=== PATIENT | male | born 2000 | race Caucasian/White ===

== ENCOUNTER 2024-03-28 14:56 | Emergency (ER) | payer OTHER, SELFPAY ==
[2024-03-28 15:14] VITALS: BP 128/75
[2024-03-28 17:42] VITALS: BMI 27.4
[2024-03-28] MEDS: MOTRIN 600 MG PO (17:47)
--- NOTE | 2024-03-28 17:52 | ED.GENMED ---
History of Present Illness
<Dereje Hernandez DO, Resident - Last Filed: 03/28/24 19:20>
General
Chief Complaint: Musculo-Skeletal Complaint
Source: patient and family
Time Seen by Provider: 03/28/24 17:26
History of Present Illness
History of Present Illness:
24-year-old male with no significant past medical history presents for 1 day of pain and bruising to the left shoulder after he fell while snowboarding yesterday. Patient reports he did hit his head, no loss of consciousness, no photophobia, no
difficulty concentrating, no changes in vision. Patient also reports that he landed on his left shoulder at a high rate of speed. Now he is complaining of left shoulder pain worse with motion. He is only tried aspirin, he reports it does not help.
Past History
<Dereje Hernandez DO, Resident - Last Filed: 03/28/24 19:20>
Past History
ED Past Medical History: None
ED Past Surgical History: None
Patient has exhibited threatening behavior?: No
Social History
Personal: Single
Living: with family
Review of Systems
<Dereje Hernandez DO, Resident - Last Filed: 03/28/24 19:20>
Review of Systems
Constitutional: Reports no symptoms
Respiratory: Reports no symptoms
Cardiac: Reports no symptoms
ABD/GI: Reports no symptoms
: Reports no symptoms
Musculoskeletal: Reports joint pain (Left shoulder pain) and muscle stiffness
Neurological: Reports no symptoms; Denies dizzy or headache
Phy Exam
<Dereje Hernandez DO, Resident - Last Filed: 03/28/24 19:20>
General Physical Exam
General Presentation: well appearing and no apparent distress
General Skin: warm and dry
General Mental: alert
Cardiovascular Exam
Cardiovascular Exam: regular rate/rhythm, no edema and no murmur
Pulmonary Exam
Pulmonary Exam: lungs clear, no respiratory distress, no crackles and no wheezing
Gastrointestinal Exam
Gastrointestinal Exam: non tender, soft and non distended
Neurological Exam
Neurological Exam: alert, oriented x3, no motor deficits, no sensory deficits and speech normal
Musculoskeletal Exam
Musculoskeletal Exam: back tenderness and other (Restricted active range of motion on exam. Full passive range of motion on exam. Patient reports tenderness to palpation of the left AC joint only)
Skin Exam
Skin Exam: other (Bruising present on left AC joint)
Course
<Dereje Hernandez DO, Resident - Last Filed: 03/28/24 19:20>
Orders/Labs/Results
Orders:
Orders
03/28/24 14:57
CR Shoulder - Left Min 2 View* Urgent
Comment:
Reason For Exam: pain
03/28/24 15:18
Shoulder, Left, Trauma CR [CR Shoulder, Trauma - Left] Urgent
Comment:
Reason For Exam: pain injury
03/28/24 17:43
Ibuprofen [Motrin] 600 mg PO NOW STA
03/28/24 18:24
Sling Left-Treatment ONCE
Comment: Left arm
Cyclobenzaprine HCl [Flexeril] 10 mg PO NOW STA
Vital Signs
Initial and Last Documented VS:
Initial Vital Signs
Pulse Resp BP Pulse Ox
68 15 128/75 99
03/28/24 15:14 03/28/24 15:14 03/28/24 15:14 03/28/24 15:14
Last Documented Vital Signs
Temp Pulse Resp BP Pulse Ox
97.5 F 60 18 123/72 99
03/28/24 18:57 03/28/24 18:57 03/28/24 18:57 03/28/24 18:57 03/28/24 18:57
<Leslee Fitzpatrick MD - Last Filed: 03/28/24 19:06>
Orders/Labs/Results
Orders:
Orders
03/28/24 14:57
CR Shoulder - Left Min 2 View* Urgent
Comment:
Reason For Exam: pain
03/28/24 15:18
Shoulder, Left, Trauma CR [CR Shoulder, Trauma - Left] Urgent
Comment:
Reason For Exam: pain injury
03/28/24 17:43
Ibuprofen [Motrin] 600 mg PO NOW STA
03/28/24 18:24
Sling Left-Treatment ONCE
Comment: Left arm
Cyclobenzaprine HCl [Flexeril] 10 mg PO NOW STA
Vital Signs
Initial and Last Documented VS:
Initial Vital Signs
Pulse Resp BP Pulse Ox
68 15 128/75 99
03/28/24 15:14 03/28/24 15:14 03/28/24 15:14 03/28/24 15:14
Last Documented Vital Signs
Temp Pulse Resp BP Pulse Ox
97.5 F 60 18 123/72 99
03/28/24 18:57 03/28/24 18:57 03/28/24 18:57 03/28/24 18:57 03/28/24 18:57
<Dereje Hernandez DO, Resident - Last Filed: 03/28/24 19:20>
MDM/Problems Addressed
Differential Diagnosis Includes:
AC joint separation, musculoskeletal injury secondary to trauma, musculoskeletal strain, musculoskeletal sprain
MDM/Problems Addressed:
24-year-old male presents 1 day after falling off a snowboard and hitting his left shoulder and head
Patient reports no loss of consciousness, no symptoms of concussion. No dizziness, no headache no difficulty concentrating, no photophobia
On exam patient has limited active range of motion of the left shoulder in all planes of motion. Patient has full range of motion to passive movement, does report pain with passive movement. Reports pain is worse with abduction and flexion.
Patient has only tried aspirin for pain, he reports this does not help
Ordered shoulder x-ray
Shoulder x-ray did not demonstrate any fractures or dislocations, however he did demonstrate increased AC joint space of 2.3 cm superior displacement of the clavicle relative to the acromion, Which is consistent with AC joint separation. Likely
component of musculoskeletal strain/sprain
Vitals within normal limits
Pain management with oral Motrin, Patient reports having some difficulty sleeping due to pain, Ordered one-time dose Flexeril 10 p.o.
Ordered left arm sling
Encourage follow-up with primary care provider and orthopedics, referral to orthopedics provided at discharge
<Dereje Hernandez DO, Resident - Last Filed: 03/28/24 19:20>
*Critical Care Note
Total Time (30-74mins, 75-104mins- exclusive of procedures): Not Applicable
ED Attending Note
<Dereje Hernandez DO, Resident - Last Filed: 03/28/24 19:20>
-
Portions of this chart may have been created with voice recognition software.� Occasional wrong word or��sound alike� substitutions may have occurred due to the inherent limitations of voice recognition software.
<Leslee Fitzpatrick MD - Last Filed: 03/28/24 19:06>
ED Attending Note
Patient seen and examined by attending physician: Yes
I performed the substantive portion of visit, reviewed & personally made and approve the management plan that is documented in note by myself or PAULINA.: Yes
ED Attending Note:
24 yr old male who was snowboarding yesterday evening, fell, landed on L shoulder, c/o pain in ac area ever since. No n/t/neck pain/headache/loc. He was waering a helmet.
No ttp cervical spine. On exam, ttp at ac area, no tenting, no break in skin. sens/motor intact.
Xray shown to pt and mom, c/w severe ac separation, reommend prompt ortho f/u, ice, rest, sling. d/w them reasons to rted.
Discharge Plan
Departure
Patient Disposition: Home (Routine Discharge)
Date of Disposition: 03/28/24
Time of Disposition: 19:05
Patient with high blood pressure during this ER visit?: Yes
Condition: Good
Discharge Problem:
Acromioclavicular joint separation
Instructions: shoulder, Ibuprofen, How to Use a Shoulder Sling, BLOOD PRESSURE
Prescriptions:
New
cyclobenzaprine 10 mg tablet
10 mg PO HS PRN (Reason: Muscle pain/sleep) Qty: 2 0RF
Referrals:
Jerman Barahona DO [Family Provider] - Call in 1-3 days for appt
Mckay Tejada MD [Active] - Call in 1-3 days for appt
Activity Restrictions/Additional Instructions:
Please follow-up with your primary care physician, call in 1 to 3 days for an appointment
Follow-up with orthopedics, referral for Dr. Tejada is provided. Please call in 1 to 3 days to schedule a follow-up appointment
Please use Motrin by mouth as needed for pain. Please do not take more than 800 mg in an 8-hour period
Please use cyclobenzaprine by mouth as needed for pain/sleep. Please follow-up with your primary care provider for a refill
Please return if you notice severe pain in the shoulder, numbness, the joint is unstable, if you notice fever and swelling of the left shoulder. If you developAny of the symptoms, you get worse please return to the emergency department.
Interventions
Interventions:
*Risk Screen - Suicide Last Done: 03/28/24 17:42
*General Assessment Last Done: 03/28/24 17:42
*Neglect/Abuse Screening Last Done: 03/28/24 17:42
ED- Fall Risk Assessment Last Done: 03/28/24 17:42
*ED COVID-19 Vaccine History Last Done: 03/28/24 17:42
ED-Musculoskeletal Assessment Last Done: 03/28/24 17:42
Discharge Date and Time
Print Language: SLOVAK
[2024-03-28] MEDS: FLEXERIL 10 MG PO (18:35)
[2024-03-28 18:57] VITALS: BP 123/72
== END 2024-03-28 19:25 | disposition home or self-care (01) ==
LOC: EMR 14:56
PROVIDERS: EMERGENCY PHYSICIAN Emergency Medicine; FAMILY PHYSICIAN Family Medicine
DX: S43.102A Unspecified dislocation of left acromioclavicular joint, initial encounter (principal); S40.012A Contusion of left shoulder, initial encounter; V00.311A Fall from snowboard, initial encounter; Y93.23 Activity, snow (alpine) (downhill) skiing, snowboarding, sledding, tobogganing and snow tubing
CPT/HCPCS: 99283; 73030

== ENCOUNTER → 2024-04-02 16:28 | Outpatient (REF) | payer OTHER, SELFPAY | LOC: MRI 3T 16:28 | PROVIDERS: ATTENDING PHYSICIAN Orthopaedic Surgery; FAMILY PHYSICIAN Family Medicine | DX: S43.102A Unspecified dislocation of left acromioclavicular joint, initial encounter (principal) | CPT/HCPCS: 73218 ==